=== PATIENT | female | born 1975 | race Caucasian/White ===

== ENCOUNTER 2018-04-19 18:42 | Emergency (ER) | payer OTHER ==
[~2018-04-19] VITALS: Ht 167.6 cm; Wt 124.7 kg
[2018-04-19 19:10] VITALS: BP_SYST 117
--- NOTE | 2018-04-19 21:16 | NUR ---
Patient to ER bed 2 to gown for evaluation. Side rails up.
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
--- NOTE | 2018-04-19 21:40 | NUR ---
bedside for pt eval
--- NOTE | 2018-04-19 22:10 | NUR ---
Pt taken to Radiology, well tolerated
[2018-04-19] MEDS ORDERED: IBUPROFEN 800 MG TABLET PO ONE (22:45)
--- NOTE | 2018-04-19 22:50 | NUR ---
Dr. Ambrocio bedside to update pt
[2018-04-19 23:06] VITALS: BP_SYST 115
--- NOTE | 2018-04-19 23:06 | NUR ---
Patient given written and verbal discharge instructions and verbalizes understanding. ER MD discussed with patient the results and treatment provided. Patient in stable condition. ID arm band removed. Rx of Tramadol, Motrin, and Robaxin given. Patient educated on pain management and to follow up with PMD. Pain Scale 0. Opportunity for questions provided and answered. Medication side effect fact sheet provided.
== END 2018-04-19 23:06 | disposition home or self-care (01) ==
LOC: SED 18:42
DX: R07.89 Other chest pain (principal); R03.0 Elevated blood-pressure reading, without diagnosis of hypertension; G43.909 Migraine, unspecified, not intractable, without status migrainosus; Z90.49 Acquired absence of other specified parts of digestive tract; V89.2XXA Person injured in unspecified motor-vehicle accident, traffic, initial encounter; Y93.89 Activity, other specified; Y92.89 Other specified places as the place of occurrence of the external cause; Y99.8 Other external cause status
CPT/HCPCS: 71046-TC; 99283

== ENCOUNTER 2019-01-13 19:02 | Emergency (ER) | payer OTHER ==
[~2019-01-13] VITALS: Ht 165.1 cm; Wt 117.9 kg
[2019-01-13 19:09] VITALS: BP_SYST 153
--- NOTE | 2019-01-13 19:09 | NUR ---
Patient triaged and placed in waiting room. VSS and patient appears in no acute distress at this time. Accompanied by fam member, awaiting available bed, and MD notified of need for MSE.
--- NOTE | 2019-01-13 22:11 | NUR ---
Patient to ER bed 8 to gown for evaluation. Side rails up. Report given to Richard VELASQUEZ.
--- NOTE | 2019-01-13 22:15 | NUR ---
ER Dr. Coleman at bedside examining patient.
[2019-01-13] MEDS ORDERED: ONDANSETRON 4 MG ODT TAB PO ONE (22:30)
[2019-01-13] MEDS ORDERED: HYDROcodone/ACETAMIN 5-325 MG TAB (NORCO/ VICODIN) PO ONE (22:30)
--- NOTE | 2019-01-13 22:40 | NUR ---
Radiology at bedside performing x-ray.
[2019-01-13 22:55] LABS: BASOPHILS % (AUTO) 0.5 % (0.0-2.0); EOSINOPHILS # (AUTO) 0.3 K/uL (0.0-0.4); EOSINOPHILS % (AUTO) 3.3 % (0.0-4.0); HEMATOCRIT 35.3 % (36-48); HEMOGLOBIN 11.7 g/dL (12.0-16.0); LYMPHOCYTES # (AUTO) 2.3 K/uL (1.0-5.5); LYMPHOCYTES % (AUTO) 27.7 % (20.5-51.5); MEAN CORPUSCULAR HEMOGLOBIN 29 pg (27-31); MEAN CORPUSCULAR HGB CONC 33 % (32-36); MEAN CORPUSCULAR VOLUME 88 fL (79.0-98.0); MONOCYTES # (AUTO) 0.4 K/uL (0.0-1.0); MONOCYTES % (AUTO) 4.8 % (1.7-9.3); NEUTROPHILS # (AUTO) 5.3 K/uL (1.8-7.7); NEUTROPHILS % (AUTO) 63.7 % (40.0-70.0); PLATELET COUNT (AUTO) 176 K/uL (130-430); RED BLOOD CELL COUNT(AUTO) 4.03 MIL/uL (4.2-6.2); WHITE BLOOD COUNT (AUTO) 8.2 K/uL (4.8-10.8)
[2019-01-13 23:01] LABS: ANION GAP 7 (5-15); CHLORIDE 106 mmol/L (98-107); CREATININE 0.83 mg/dL (0.55-1.30); GLUCOSE 98 mg/dL (70-99); POTASSIUM 3.8 mmol/L (3.5-5.1); SODIUM SERUM 140 mmol/L (136-145); UREA NITROGEN, BLOOD 14 mg/dL (8-21)
[2019-01-13 23:04] LABS: PROTHROMBIN TIME 10.5 SECS (9.5-12.5)
[2019-01-13 23:06] LABS: ALANINE AMINOTRANSFERASE 12 U/L (12-78); ALBUMIN 3.7 g/dL (3.4-4.8); ASPARTATE AMINOTRANSFERASE < 5 U/L (10-37); TOTAL BILIRUBIN 0.3 mg/dL (0.0-1.0)
[2019-01-13 23:07] LABS: GFR AFRICAN AMERICAN 96 mL/min (>90)
[2019-01-14 00:15] VITALS: BP_SYST 141
--- NOTE | 2019-01-14 00:15 | NUR ---
Patient given written and verbal discharge instructions and verbalizes understanding. ER MD discussed with patient the results and treatment provided. Patient in stable condition. ID arm band removed. IV catheter removed intact and dressing applied, no active bleeding. Rx of [place] and Zofran given. Patient educated on pain management and to follow up with PMD. Pain Scale 0. Opportunity for questions provided and answered. Medication side effect fact sheet provided.
== END 2019-01-14 00:15 | disposition home or self-care (01) ==
LOC: SED 19:02
DX: S86.912A Strain of unspecified muscle(s) and tendon(s) at lower leg level, left leg, initial encounter (principal); G43.909 Migraine, unspecified, not intractable, without status migrainosus; E11.9 Type 2 diabetes mellitus without complications; W01.0XXA Fall on same level from slipping, tripping and stumbling without subsequent striking against object, initial encounter; Y93.89 Activity, other specified; Y92.89 Other specified places as the place of occurrence of the external cause; Y99.8 Other external cause status
CPT/HCPCS: 36415; 73590; 80053; 82550; 85025; 85610; 85730; 93971; 99284; Q0162